=== PATIENT | female | born 1970 | race Native Hawaiian/Other Pacific Islander ===

== ENCOUNTER 2017-01-15 01:01 | Emergency (ER) | payer BC, OTHER ==
[~2017-01-15] VITALS: Ht 157.5 cm; Wt 54.4 kg
--- NOTE | 2017-01-15 01:28 | NUR ---
Patient discharged to home in stable conditon. Written and verbal after care instructions given. Patient verbalizes understanding of instructions.
== END 2017-01-15 01:29 | disposition home or self-care (01) ==
LOC: ER 01:09
DX: J02.9 Acute pharyngitis, unspecified (principal)
CPT/HCPCS: A4663